=== PATIENT | female | born 1975 | race Caucasian/White ===

== ENCOUNTER 2024-05-27 23:23 | Emergency (ER) | payer OTHER ==
[~2024-05-27] VITALS: Ht 165.1 cm; Wt 67.5 kg
[2024-05-27 23:38] VITALS: O2SAT 100
[2024-05-28] MEDS: SODIUM CHLORIDE 0.9% 1,000 ML IV ONE
[2024-05-28] MEDS: ACETAMINOPHEN 650MG/20.3ML UDC PO ONE (00:15)
[2024-05-28 00:19] LABS: HEMATOCRIT. 38.7 % (36.0-48.0); HEMOGLOBIN. 13.1 g/dL (12.0-16.0); MEAN CORPUSCULAR HEMOGLOBIN 32.3 pg (28.0-32.0); PLATELET 183 x1000/uL (130-400); RED BLOOD CELL COUNT 4.07 mill/uL (4.2-5.4); RED CELL DISTRIBUTION WIDTH 12.5 % (11.6-14.6); WHITE BLOOD COUNT 15.5 x1000/uL (4.5-11.0)
[2024-05-28 00:21] LABS: DIFFERENTIAL COMMENT 1
[2024-05-28 00:24] LABS: PROTHROMBIN TIME 11.2 sec (9.6-11.0)
[2024-05-28] MEDS: ONDANSETRON HCL 4MG/2ML INJ IV STA (00:32)
[2024-05-28] MEDS: KETOROLAC 15MG/ML VIAL IV ONE (00:32)
[2024-05-28 00:36] LABS: CHLORIDE 104 mEq/L (98-107); POTASSIUM 3.3 mEq/L (3.5-5.1); SODIUM 136 mEq/L (136-145)
[2024-05-28 00:37] LABS: CALCIUM 9.4 mg/dL (8.7-10.4); CARBON DIOXIDE 24 mEq/L (21-32)
[2024-05-28 00:42] LABS: CREATININE 0.8 mg/dL (0.6-1.0); GLUCOSE 142 mg/dL (70-105); UREA NITROGEN BLOOD 8 mg/dL (9-23)
[2024-05-28 00:51] LABS: CLARITY URINE CLOUDY (CLEAR); COLOR URINE YELLOW (YELLOW); GLUCOSE URINE NEGATIVE (NEGATIVE); KETONES URINE 2+ (NEGATIVE); LEUKOCYTE ESTERASE URINE 1+ (NEGATIVE); NITRITE URINE POSITIVE (NEGATIVE); OCCULT BLOOD URINE TRACE (NEGATIVE); PH URINE 5.5 (4.5-8.0); PROTEIN URINE 2+ (NEGATIVE); SPECIFIC GRAVITY URINE 1.024 (1.005-1.030)
[2024-05-28] MEDS ORDERED: SULF1TAB48 MT (01:03)
[2024-05-28 01:11] LABS: HCG SCREEN NEGATIVE
[2024-05-28 01:30] VITALS: BP 122/69; PULSE 94; RESP 18; TEMP 36.83628; O2SAT 100
[2024-05-28 01:38] LABS: SQUAMOUS EPITHELIAL CELL URINE 3+ /lpf (RARE/1+)
[2024-05-28 01:41] LABS: BACTERIA URINE 1+
[2024-05-28 03:20] LABS: PLATELET ESTIMATE NORMAL
[2024-05-28 03:33] LABS: ATYPICAL LYMPHOCYTES 8
== END 2024-05-28 01:40 | disposition home or self-care (01) ==
LOC: ER 23:23
DX: N12 Tubulo-interstitial nephritis, not specified as acute or chronic (principal); R51.9 Headache, unspecified; R50.9 Fever, unspecified; R11.10 Vomiting, unspecified
CPT/HCPCS: 99284; 80048; 81003; 81025; 84703; 83690; 85025; 85610; 36415; J1885; J2405; J7030

== ENCOUNTER 2024-05-30 19:14 | Emergency (ER) | payer OTHER ==
[~2024-05-30] VITALS: Ht 165.1 cm; Wt 55.4 kg
[~2024-05-30 19:14] MED LIST: SULF1TAB48 MT
[2024-05-30 19:18] VITALS: O2SAT 100
[2024-05-30 19:28] VITALS: BP 103/63; PULSE 92; RESP 18; O2SAT 100
[2024-05-30 21:51] LABS: CLARITY URINE CLEAR (CLEAR); COLOR URINE YELLOW (YELLOW); GLUCOSE URINE NEGATIVE (NEGATIVE); KETONES URINE 1+ (NEGATIVE); LEUKOCYTE ESTERASE URINE TRACE (NEGATIVE); NITRITE URINE NEGATIVE (NEGATIVE); OCCULT BLOOD URINE TRACE (NEGATIVE); PH URINE 6.5 (4.5-8.0); PROTEIN URINE NEGATIVE (NEGATIVE); SPECIFIC GRAVITY URINE 1.009 (1.005-1.030)
[2024-05-30 22:05] LABS: BACTERIA URINE 1+; RBC URINE 0-2 /hpf (0-2); SQUAMOUS EPITHELIAL CELL URINE 1+ /lpf (RARE/1+); WBC URINE 0-2 /hpf (0-2)
[2024-05-30] MEDS ORDERED: LIDO700A15 TP (22:13)
[2024-05-30 22:15] VITALS: TEMP 98
[2024-05-30] MEDS: ACETAMINOPHEN 325MG TABLET PO ONE (22:15)
== END 2024-05-30 22:34 | disposition home or self-care (01) ==
LOC: ER 19:14
DX: M54.9 Dorsalgia, unspecified (principal); R10.9 Unspecified abdominal pain
CPT/HCPCS: 81003; 99283